=== PATIENT | female | born 2000 | race Two or more races ===

== ENCOUNTER 2024-08-27 00:09 | Outpatient (CLI) | payer BC ==
[2024-08-26 23:29] VITALS: BP 110/71
[~2024-08-27] VITALS: Ht 160 cm; Wt 90.7 kg
[~2024-08-27 00:09] MED LIST: PRENATABS RX T1 EACH
[2024-08-27] MEDS ORDERED: PROMETHAZINE HCL 25 MG/ML AMPUL IV ONE (00:15)
[2024-08-27] MEDS ORDERED: RINGERS SOLUTION,LACTATED 1,000 ML IV SCH (00:15)
[2024-08-27] MEDS ORDERED: PROMETHAZINE HCL 25 MG/ML AMPUL IV PRN (00:15)
[2024-08-27 00:49] LABS: BASO % 0.2 % (0.1-1.2); EOS # 0.02 (0.04-0.54); EOS % 0.1 % (0.7-7.0); HEMATOCRIT 35.2 % (34.1-44.9); HEMOGLOBIN 11.9 g/dL (11.2-15.7); LYMPH # 0.48 (1.18-3.74); MEAN CORPUSCULAR HEMOGLOBIN 29.4 pg (25.6-32.2); MONO # 0.56 (0.24-0.82); MONO % 3.5 % (4.7-12.5); NEUT # 14.65 (1.56-6.13); NEUT % 92.3 % (34.0-71.1); PLATELET COUNT 193 K/uL (163-369); RED BLOOD COUNT 4.05 M/uL (3.93-5.22); RED CELL DISTRIBUTION WIDTH 12.9 % (11.6-14.4)
[2024-08-27 01:13] LABS: ALBUMIN 3.2 gm/dL (3.4-5.0); BILIRUBIN TOTAL 0.51 mg/dL (0.3-1.2); CALCIUM 8.8 mg/dL (8.5-10.1); CREATININE SERUM 0.59 mg/dL (0.55-1.02); GFR 126.31; GLOBULINA 3.5 G/DL (2.4-3.5); POTASSIUM 3.69 mEq/L (3.5-5.1); TOTAL PROTEIN 6.7 gm/dL (6.4-8.2)
[2024-08-27 04:05] VITALS: BP 96/59
[2024-08-27 06:21] VITALS: BP 92/61; O2SAT 97
[2024-08-27 11:00] VITALS: BP 107/69
[2024-08-27 13:00] VITALS: BP 107/69
== END 2024-08-27 13:12 | disposition home or self-care (01) ==
LOC: OBS/DEL 00:09
PROVIDERS: ATTEND Obstetrics & Gynecology Gynecology
DX: O26.893 Other specified pregnancy related conditions, third trimester (principal); R11.2 Nausea with vomiting, unspecified; Z3A.31 31 weeks gestation of pregnancy

== ENCOUNTER 2024-10-05 16:30 | Outpatient (CLI) | payer OTHER | END 2024-10-05 17:46 | disposition home or self-care (01) | LOC: NST 16:30 | PROVIDERS: ATTEND Obstetrics & Gynecology Maternal & Fetal Medicine | DX: Z34.83 Encounter for supervision of other normal pregnancy, third trimester (principal) ==

== ENCOUNTER 2024-10-12 17:00 | Outpatient (CLI) | payer OTHER | END 2024-10-12 18:06 | disposition home or self-care (01) | LOC: NST 17:00 | PROVIDERS: ATTEND Obstetrics & Gynecology Gynecology | DX: Z34.83 Encounter for supervision of other normal pregnancy, third trimester (principal) ==

== ENCOUNTER 2024-10-19 15:44 | Outpatient (CLI) | payer OTHER | END 2024-10-19 16:56 | disposition home or self-care (01) | LOC: NST 15:44 | PROVIDERS: ATTEND Obstetrics & Gynecology | DX: Z34.83 Encounter for supervision of other normal pregnancy, third trimester (principal) ==

== ENCOUNTER 2024-10-27 12:45 | Inpatient (IN) | payer OTHER ==
[~2024-10-27] VITALS: Ht 160 cm; Wt 3.6 kg
[2024-10-27 15:45] VITALS: BP 139/73
[2024-10-27] MEDS ORDERED: MISOPROSTOL 25 MCG TABLET ONE (16:22)
[2024-10-27] MEDS ORDERED: MORPHINE SULFATE 4 MG/ML CARTRIDGE IV PRN (16:45)
[2024-10-27] MEDS ORDERED: RINGERS SOLUTION,LACTATED 1,000 ML IV SCH (17:00)
[2024-10-27] MEDS ORDERED: MISOPROSTOL 25 MCG TABLET VAG ONE (17:00)
[2024-10-27 17:01] LABS: BASO % 0.1 % (0.1-1.2); EOS # 0.10 (0.04-0.54); EOS % 0.7 % (0.7-7.0); LYMPH # 1.43 (1.18-3.74); LYMPH % 10.6 % (19.3-53.1); MEAN PLATELET VOLUME 10.30 fl (9.4-12.4); MONO # 0.72 (0.24-0.82); MONO % 5.3 % (4.7-12.5); NEUT # 11.12 (1.56-6.13); NEUT % 82.2 % (34.0-71.1); RED CELL DISTRIBUTION WIDTH 13.2 % (11.6-14.4)
[2024-10-27 17:29] LABS: INR 0.96
[2024-10-27 19:35] VITALS: BP 119/50
[2024-10-27 23:42] VITALS: BP 145/66
[2024-10-28 03:06] VITALS: BP 124/69
[2024-10-28 07:37] VITALS: BP 129/65
[2024-10-28] MEDS ORDERED: OXYTOCIN 20 UNITS/500ML RL PIGGYBAG IV ONE (07:37)
[2024-10-28] MEDS ORDERED: OXYTOCIN 500 ML IV ONE (08:15)
[2024-10-28] MEDS ORDERED: ERYTHROMYCIN BASE OPHT 1GM EACH TUBE OP ONE (12:25)
[2024-10-28] MEDS ORDERED: OXYTOCIN 10 UNITS/ML VIAL ONE ×2 (12:25→15:49)
[2024-10-28] MEDS ORDERED: MORPHINE SULFATE 4 MG/ML CARTRIDGE IV PRN (14:15)
[2024-10-28] MEDS ORDERED: RINGERS SOLUTION,LACTATED 1,000 ML IV SCH (14:15)
[2024-10-28] MEDS ORDERED: OXYTOCIN 1,000 ML IV ONE (14:15)
[2024-10-28] MEDS ORDERED: MORPHINE SULFATE 4 MG/ML VIAL IV ONE ×2 (14:45→15:40)
[2024-10-28 16:39] VITALS: BP 132/74
[2024-10-28] MEDS ORDERED: SIMETHICONE 125 MG CAPSULE PO SCH (17:00)
[2024-10-28] MEDS ORDERED: GABAPENTIN 300 MG CAPSULE PO SCH (17:00)
[2024-10-28] MEDS ORDERED: KETOROLAC TROMETHAMINE 30 MG VIAL IV SCH (18:00)
[2024-10-28] MEDS ORDERED: ACETAMINOPHEN 500 MG GEL..CAP PO SCH (18:00)
[2024-10-28] MEDS ORDERED: ONDANSETRON HCL 2 MG/ML VIAL IV SCH (18:00)
[2024-10-28 20:00] VITALS: BP 118/75
[2024-10-29 01:45] VITALS: BP 131/79
[2024-10-29 03:57] LABS: BASO % 0.2 % (0.1-1.2); EOS # 0.02 (0.04-0.54); EOS % 0.1 % (0.7-7.0); LYMPH # 0.98 (1.18-3.74); LYMPH % 5.5 % (19.3-53.1); MEAN PLATELET VOLUME 10.20 fl (9.4-12.4); MONO # 0.76 (0.24-0.82); MONO % 4.3 % (4.7-12.5); NEUT # 15.82 (1.56-6.13); NEUT % 89.3 % (34.0-71.1); RED CELL DISTRIBUTION WIDTH 13.2 % (11.6-14.4)
[2024-10-29] MEDS ORDERED: OxyCODONE HCL 5 MG TABLET (ROXICODONE) PO PRN (08:00)
[2024-10-29] MEDS ORDERED: KETOROLAC TROMETHAMINE 10 MG TABLET PO SCH (08:00)
[2024-10-29 08:20] VITALS: BP 117/71
[2024-10-29] MEDS ORDERED: DOCUSATE SODIUM 100MG CAP PO SCH (09:00)
[2024-10-29 16:00] VITALS: BP 110/75
[2024-10-30] VITALS: BP 103/65
[2024-10-30 08:30] VITALS: BP 104/66
[2024-10-30 16:06] VITALS: BP 110/66
[2024-10-30 23:58] VITALS: BP 129/77
[2024-10-31 08:00] VITALS: BP 125/80
== END 2024-10-31 14:08 | disposition home or self-care (01) | DRG 788 ==
LOC: OB/GYN 12:45 → LDR 15:25 → OB/GYN 15:25 → O/R 10-28 13:46 → OB/GYN 10-28 14:35
PROVIDERS: Obstetrics & Gynecology; ADMIT Obstetrics & Gynecology; ATTEND Obstetrics & Gynecology
PROC: 4A1HXCZ Monitoring of Products of Conception, Cardiac Rate, External Approach (ICD-10-PCS; 2024-10-27)
PROC: 3E0P7VZ Introduction of Hormone into Female Reproductive, Via Natural or Artificial Opening (ICD-10-PCS; 2024-10-27)
PROC: 3E033VJ Introduction of Other Hormone into Peripheral Vein, Percutaneous Approach (ICD-10-PCS; 2024-10-28)
PROC: 10D00Z1 Extraction of Products of Conception, Low, Open Approach (ICD-10-PCS; principal; 2024-10-28 12:00)
DX: O82 Encounter for cesarean delivery without indication (principal); O62.0 Primary inadequate contractions; Z3A.40 40 weeks gestation of pregnancy; Z37.0 Single live birth